=== PATIENT | male | born 1980 | race American Indian/Alaskan Native ===

== ENCOUNTER 2020-08-02 00:06 | Emergency (ER) | payer SELFPAY | END 2020-08-02 00:45 | disposition left against medical advice (07) | LOC: ED 00:06 | DX: Z53.21 Procedure and treatment not carried out due to patient leaving prior to being seen by health care provider (principal) ==

== ENCOUNTER 2020-12-13 08:11 | Emergency (ER) | payer SELFPAY ==
--- NOTE | 2020-12-13 08:23 | Event Note ---
ED Screening Note ED Screening Note: cp rad to [place] off and on for days today substernal "gassy" pressure mom a/w dad murdered smokes cig denies drugs etoh also endorses cough and covid exposure This initial assessment/diagnostic orders/clinical plan/treatment(s) is/are subject to change based on patients health status, clinical progression and re- assessment by fellow clinical providers in the ED. Further treatment and workup at subsequent clinical providers discretion. Patient/guardian urged not to elope from the ED as their condition may be serious if not clinically assessed and managed. Initial orders include: labs xray
[2020-12-13 08:41] LABS: Basophils % (Auto) 0.4 % (0.0-1.8); Eosinophils # (Auto) 0.1 K/mm3 (0.0-0.4); Hematocrit 52.2 % (35.5-45.6); Hemoglobin 18.2 gm/dl (11.8-15.2); Lymphocytes # (Auto) 1.9 K/mm3 (1.2-5.4); Lymphocytes % (Auto) 36.3 % (13.4-35.0); Mean Corpuscular HGB Conc 35 % (32-34); Mean Corpuscular Volume 95 fl (84-94); Monocytes # (Auto) 0.5 K/mm3 (0.0-0.8); Monocytes % (Auto) 8.6 % (0.0-7.3); Platelet Count 202 K/mm3 (140-440); Red Blood Count 5.47 M/mm3 (3.65-5.03); Red Cell Distribution Width 13.5 % (13.2-15.2)
--- NOTE | 2020-12-13 09:05 | XRay Report ---
CHEST PA AND LATERAL VIEWS INDICATION: Chest Pain. COMPARISON: None. FINDINGS: Support devices: None. Heart: Within normal limits. Lungs/Pleura: No acute pulmonary or pleural findings. IMPRESSION: 1. No acute findings. Signer Name: Ji Feldman MD Signed: 12/13/2020 9:01 AM Workstation Name: [id number]
[2020-12-13 09:07] LABS: Alanine Aminotransferase 16 units/L (7-56); Albumin 4.3 g/dL (3.9-5); BUN/Creatinine Ratio 11; Blood Urea Nitrogen 11 mg/dL (9-20); Calcium 9.2 mg/dL (8.4-10.2); Hemolysis Index 79
--- NOTE | 2020-12-13 09:58 | Emergency Department Report ---
ED Chest Pain HPI - General Chief Complaint: Upper Respiratory Infection Stated Complaint: CHEST PAINS/COUGHING PUI?: Yes Time Seen by Provider: 12/13/20 08:21 Source: patient Mode of arrival: Ambulatory Limitations: No Limitations - History of Present Illness Initial Comments: Chief complaint: "I had a little bit of chest pain for the last couple of days." HPI: This is a 40-year-old male without significant past medical history who presents with cough for the past 3 days chest pain off and on for a week. He has intermittent chest achiness mostly associated with cough. He has had exposure to sick contacts at his job. He denies fever. He denies loss of taste or smell. Denies vomiting. Denies headache. He is chest pain-free at this time. He states,, " I just need a few days off of work." Complaint: chest pain -: Gradual, week(s) (1 week) Onset: during rest Pain Location: substernal Pain Radiation: none Severity: mild Quality: aching Consistency: intermittent, now resolved Improves With: nothing Worsens With: other (Cough) Other Symptoms: cough - Related Data Allergies Allergy/AdvReac Type Severity Reaction Status Date / Time No Known Allergies Allergy Unverified 12/13/20 08:21 Heart Score - HEART Score History: Slightly suspicious EKG: Normal Age: < 45 Risk factors: No known risk factors Troponin: < normal limit HEART Score: 0 ED Review of Systems ROS: Stated complaint: CHEST PAINS/COUGHING Other details as noted in HPI Comment: All other systems reviewed and negative Constitutional: denies: chills, fever, malaise Respiratory: cough. denies: shortness of breath Cardiovascular: chest pain ED Past Medical Hx - Past Medical History Previous Medical History?: No - Surgical History Past Surgical History?: No - Social History Smoking Status: Never Smoker Substance Use Type: Alcohol ED Physical Exam - General Limitations: No Limitations General appearance: alert, in no apparent distress - Head Head exam: Present: atraumatic, normocephalic - Eye Eye exam: Present: normal appearance - ENT ENT exam: Present: mucous membranes moist - Neck Neck exam: Present: normal inspection, full ROM - Respiratory Respiratory exam: Present: normal lung sounds bilaterally. Absent: respiratory distress, wheezes, rales, rhonchi - Cardiovascular Cardiovascular Exam: Present: regular rate, normal rhythm, normal heart sounds. Absent: systolic murmur, diastolic murmur, rubs, gallop - GI/Abdominal GI/Abdominal exam: Present: soft, normal bowel sounds. Absent: distended, tenderness, guarding, rebound - Rectal Rectal exam: Present: deferred - Extremities Exam Extremities exam: Present: normal inspection - Neurological Exam Neurological exam: Present: alert, oriented X3 - Psychiatric Psychiatric exam: Present: normal affect, normal mood - Skin Skin exam: Present: warm, dry, intact, normal color. Absent: rash ED Course Vital Signs 12/13/20 08:21 Temperature 98 F Pulse Rate 110 H Respiratory 20 Rate Blood Pressure 115/72 O2 Sat by Pulse 98 Oximetry ED Medical Decision Making - Lab Data Result diagrams: 12/13/20 08:34 12/13/20 08:34 Laboratory Results - last 24 hr 12/13/20 12/13/20 08:34 08:34 WBC 5.3 RBC 5.47 H Hgb 18.2 H Hct 52.2 H MCV 95 H MCH 33 H MCHC 35 H RDW 13.5 Plt Count 202 Lymph % (Auto) 36.3 H Owen % (Auto) 8.6 H Eos % (Auto) 1.0 Baso % (Auto) 0.4 Lymph # (Auto) 1.9 Owen # (Auto) 0.5 Eos # (Auto) 0.1 Baso # (Auto) 0.0 Seg Neutrophils % 53.7 Seg Neutrophils # 2.8 Sodium 140 Potassium 4.2 Chloride 102.2 Carbon Dioxide 27 Anion Gap 15 BUN 11 Creatinine 1.0 Estimated GFR > 60 BUN/Creatinine Ratio 11 Glucose 102 H Calcium 9.2 Total Bilirubin 0.20 AST 19 ALT 16 Alkaline Phosphatase 76 Troponin T < 0.010 Total Protein 7.5 Albumin 4.3 Albumin/Globulin Ratio 1.3 Lipase 45 - EKG Data -: EKG Interpreted by Me EKG shows normal: sinus rhythm, axis, intervals, QRS complexes, ST-T waves Rate: normal - EKG Data Interpretation: normal EKG 12/13/20 09:56 EKG obtained 0830 EKG interpreted by ms Normal sinus rhythm normal rate normal axis normal intervals no ST elevation no ST-T signs of ischemia normal EKG - Radiology Data Radiology results: report reviewed Chest radiograph: No acute findings - Medical Decision Making Chest pain associated with cough: Differential diagnosis includes acute bronchitis versus atypical pneumonia versus COVID-19 infection: I recommend [id number] cold medication. Patient is mostly symptom-free at this time. I recommended outpatient COVID-19 testing. No evidence of emergent conditions such as ACS, pulmonary embolism, pneumothorax, lobar pneumonia. Patient given reassurance. CBC chemistry troponin within normal limits. EKG chest radiograph all without acute findings. Critical care attestation.: If time is entered above; I have spent that time in minutes in the direct care of this critically ill patient, excluding procedure time. ED Disposition Clinical Impression: Acute bronchitis, Respiratory infection Disposition: DC-01 TO HOME OR SELFCARE Is pt being admited?: No Does the pt Need Aspirin: No Condition: Stable Instructions: Acute Bronchitis (ED), Acute Bronchitis, Adult, [id number] Forms: Work/School Release Form(ED)
[2020-12-13 10:54] VITALS: BP 122/84
== END 2020-12-13 10:45 | disposition home or self-care (01) ==
LOC: ED 08:11
DX: J20.9 Acute bronchitis, unspecified (principal); J98.8 Other specified respiratory disorders
CPT/HCPCS: 36415; 71046; 80053; 83690; 84484; 85025; 93005

== ENCOUNTER 2021-02-21 18:15 | Emergency (ER) | payer SELFPAY | END 2021-02-21 22:30 | disposition left against medical advice (07) | LOC: ED 18:15 | DX: J00 Acute nasopharyngitis [common cold] (principal); Z53.21 Procedure and treatment not carried out due to patient leaving prior to being seen by health care provider ==